=== PATIENT | female | born 1965 | race Caucasian/White ===

== ENCOUNTER 2019-11-06 15:57 | Emergency (ER) | payer OTHER ==
[~2019-11-06] VITALS: Ht 167.6 cm; Wt 98.0 kg
[2019-11-06 16:06] VITALS: BP_SYST 164
[2019-11-06 19:15] VITALS: BP_SYST 133
== END 2019-11-06 19:15 | disposition home or self-care (01) ==
LOC: SED 15:57
DX: M25.561 Pain in right knee (principal); M25.532 Pain in left wrist; W01.0XXA Fall on same level from slipping, tripping and stumbling without subsequent striking against object, initial encounter; Y93.01 Activity, walking, marching and hiking; Y92.89 Other specified places as the place of occurrence of the external cause; Y99.8 Other external cause status
CPT/HCPCS: 73560-TC; 99284